=== PATIENT | male | born 1990 | race Caucasian/White ===

== ENCOUNTER 2016-12-23 21:23 | Emergency (ER) | payer OTHER ==
[~2016-12-23 21:23] MED LIST: BENADRYL ALLERG25 M1 PO; CLINDAMYCIN HY300 MG PO; CLONIDINE0.1 MG PO; IBU800 MG PO; ZOFRAN4 M1 SL
--- NOTE | 2016-12-23 22:49 | ED NECK/BACK PAIN COMPLAINT ---
History of Present Illness General Chief Complaint: Foot or Ankle Injury Stated Complaint: NUMBNESS L FOOT AND TOES Source: patient Exam Limitations: no limitations Vital Signs & Intake/Output Vital Signs & Intake/Output Vital Signs Date Time Temp Pulse Resp B/P Pulse O2 O2 Flow FiO2 Ox Delivery Rate 12/23 2313 97.8 88 20 139/79 99 Room Air 12/23 2129 90 22 145/82 98 ED Intake and Output 12/24 0000 12/23 1200 Intake Total Output Total Balance Patient 150 lb Weight Allergies Coded Allergies: MDX - Amoxicillin (AMOXICILLIN) (VOMITING 04/22/15) MDX - Seafood (SEAFOOD) (HIVES 04/22/15) Reconcile Medications CLINDAMYCIN HCL (Clindamycin Hydrochloride) 300 MG CAP 1 TAB PO TID DENTAL INFECTION CLONIDINE HCL (Clonidine) 0.1 MG TABLET 1 TAB PO TID HEROIN W/D DIPHENHYDRAMINE HCL (Benadryl) 25 MG CAPSULE 2-3 CAP PO QPM SLEEP (Reported) Ibuprofen (Ibu) 800 MG TAB 1 TAB PO Q8HR PRN PAIN Methylprednisolone. (Medrol) 4 MG TAB.DS.PK 1 DP PO AD INFLAMMATION 6 on day 1 then reduce by one tablet daily until gone Ondansetron (Zofran Odt) 4 MG TAB.RAPDIS 1 TAB SL Q4-6 PRN NAUSEA Triage Note: PER PT TOES NUMB AND FOOT L SIDE X [address] NOT SEE DR BECAUSE I AM HARD HEADED AND THOUGHT IT WOULD GO AWAY. Triage Nurses Notes Reviewed? yes Onset: Gradual Duration: constant Timing: remote history Quality/Severity: mild Method of Injury: unknown Loss of Consciousness: no loss of consciousness HPI: Patient is a 26-year-old male with an unremarkable past medical history of present emergency room with a 3 month history of left first second and third toe constant numbness. Patient denies any mechanism injury denies any back pain Denies any pain or weakness Patient has not followed up with his primary care doctor (BEA REDD) Past History Travel History Traveled to [place] past 21 day No Medical History Any Pertinent Medical History? 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 No (BEA REDD) Review of Systems Review of Systems Constitutional: Reports: no symptoms. Eyes: Reports: no symptoms. Ears, Nose, Throat, Mouth: Reports: no symptoms. Respiratory: Reports: no symptoms. Cardiovascular: Reports: no symptoms. Gastrointestinal/Abdominal: Reports: no symptoms. Musculoskeletal: Reports: no symptoms. Skin: Reports: no symptoms. Neurological/Psychological: Reports: see HPI, numbness, paresthesia. All Other Systems: Reviewed and Negative (BEA REDD) Physical Exam Physical Exam General Appearance: no apparent distress, alert, comfortable Neck: normal inspection, supple, full range of motion Comments: Well-developed well-nourished person in no acute distress HEENT: Normal EENT exam,. Neck: Supple, no lymphadenopathy, normal range of motion without pain or tenderness Back: Nontender, no CVA tenderness. Cardiovascular: Regular rate and rhythms no murmurs rubs or gallops, normal JVP Respiratory: Chest nontender. No respiratory distress.breath sounds clear to auscultation bilaterally Abdomen: Soft, nontender nondistended, no appreciable organomegaly. Normal bowel sounds. No ascites Extremity: No edema, no calf tenderness to palpation, normal and equal pulses. Bilateral lower extremity myotome's intact Left foot noted decreased sensation to dermatomes to the 1-3 phalanges Normal inspection flexion and extension of digits intact 5 out of 5 strength Capillary refill intact pedal pulse +2 Neuro: Alert oriented x3, motor sensory normal, Skin: No appreciable rash on exposed skin, skin is warm and dry. Psych: Mood and affect is normal, memory and judgment is normal. (BEA REDD) Progress Differential Diagnosis: AAA, aortic dissection, C spine injury, carotid dissection, cauda equina syn, herniated disc, myofascial strain, pyelo/UTI, sciatica, spinal cord inj, thoracic outlet syn, T/L spine injury, ureterolithiasis Plan of Care: Patient had no concerns of arterial insufficiency myotomes are intact Patient had no pain No signs of infection patient was strongly advised to follow-up with primary care doctor and was given steroid for concerns of inflammation and neuropathy (BEA REDD) Departure Departure Disposition: HOME OR SELF CARE Condition: Stable Clinical Impression Primary Impression: Numbness of toes Referrals: PATIENT HAS NO PRIMARY CARE DR (PCP/Family) Additional Instructions: As discussed begin the prescription of Medrol Dosepak as directed for inflammation for the full course. If no better in 5 days follow-up with your primary care doctor. If symptoms worsen return to emergency room. Prescriptions are waiting at [facility] pharmacy Departure Forms: Customer Survey General Discharge Information Prescriptions: Current Visit Scripts Methylprednisolone. (Medrol) 1 DP PO AD #1 DP 6 on day 1 then reduce by one tablet daily until gone (BEA REDD) PA/WAX PATTERN COATER Co-Sign Statement Statement: ED Attending supervision documentation- [] I saw and evaluated the patient. I have also reviewed all the pertinent lab results and diagnostic results. I agree with the findings and the plan of care as documented in the PA's/WAX PATTERN COATER's documentation. x I have reviewed the ED Record and agree with the PA's/WAX PATTERN COATER's documentation. [] Additions or exceptions (if any) to the PAs/WAX PATTERN COATER's note and plan are summarized below: [] (MILDRED WALKER,MIREILLE)
[2016-12-23] MEDS ORDERED: MEDROL4 M2 PO (22:56)
[2016-12-23 23:13] VITALS: BP 139/79
== END 2016-12-23 23:13 ==
LOC: ERH 21:23
DX: R20.0 Anesthesia of skin (principal)

== ENCOUNTER 2017-01-10 23:01 | Emergency (ER) | payer OTHER ==
[~2017-01-10 23:01] MED LIST changes: +MEDROL4 M2 PO
== END 2017-01-11 00:14 | disposition admitted as inpatient to this hospital (09) ==
LOC: ERH 23:01
DX: M25.511 Pain in right shoulder (principal)